=== PATIENT | female | born 1970 | race African-American/Black ===

== ENCOUNTER 2017-05-04 22:29 | Inpatient (IN) | payer OTHER ==
[~2017-05-04] VITALS: Ht 170.2 cm; Wt 61.7 kg
[2017-05-04 22:56] LABS: BASO % 1 % (0-3); EOS % 2 % (0-3); HEMATOCRIT 39.3 % (36.0-47.0); HEMOGLOBIN 13.5 g/dL (12.0-15.5); LYMPH # 1.9 x10^3/uL (1.0-4.8); LYMPH % 46 % (24-48); MEAN CORPUSCULAR HEMOGLOBIN 31 pg (25-35); MEAN CORPUSCULAR HGB CONC 34 g/dL (31-37); MEAN CORPUSCULAR VOLUME 90 fL (79-100); MONO % 6 % (0-9); NEUT % 45 % (31-73); PLATELET COUNT 195 x10^3/uL (140-400); RED BLOOD COUNT 4.38 x10^6/uL (3.50-5.40); RED CELL DISTRIBUTION WIDTH 12.9 % (11.5-14.5)
[2017-05-04] MEDS: MORPHINE SULFATE 4 MG/ML DISP.SYRIN. IV/SQ PRN (23:04)
[2017-05-04 23:05] LABS: INR 1.1 (0.8-1.1); PROTHROMBIN TIME PATIENT 13.7 SEC (11.7-14.0)
[2017-05-04 23:09] LABS: CALCIUM 9.4 mg/dL (8.5-10.1); CREATININE 0.9 mg/dL (0.6-1.0); GFR 67.1; POTASSIUM 3.4 mmol/L (3.5-5.1)
--- NOTE | 2017-05-04 23:14 | PHYS DOC ---
Past Medical History Past Medical History: CAD, High Cholesterol, Hypertension, Other Additional Past Medical Histor: Depression, anxiety Past Surgical History: Tubal ligation Alcohol Use: None Drug Use: Other Social History Narrative: former weed smoker Adult General Chief Complaint Chief Complaint: RIB PAIN HPI HPI Patient is a 47 year old female who presents with chest pain. The patient reports onset of pain 2 hours ago while at rest. She states pain is sharp/ throbbing, substernal, with radiation under her right breast & to her right shoulder/arm, associated with shortness of breath. Denies nausea or diaphoresis. Denies fevers/chills, cough, lower extremity pain/swelling. Denies previous history of similar pain. She has history of CAD s/p CABG, HTN, DM, past history tobacco abuse. 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 Review of Systems Review of Systems Constitutional: Denies fever or chills Eyes: Denies change in visual acuity HENT: Denies nasal congestion or sore throat Respiratory: Denies cough, reports shortness of breath Cardiovascular: Reports chest pain, denies edema GI: Denies abdominal pain, nausea, vomiting, bloody stools or diarrhea : Denies dysuria or hematuria Musculoskeletal: Denies back pain or joint pain Integument: Denies rash or skin lesions Neurologic: Denies headache, focal weakness or sensory changes Current Medications Current Medications Current Medications Medications (Trade) Dose Ordered Sig/Margaret Start Time Stop Time Status Last Admin Dose Admin Aspirin (Avis Aspirin) 325 mg 1X ONCE 05/04/17 23:30 05/04/17 23:31 DC 05/04/17 23:03 325 MG Morphine Sulfate 4 mg PRN Q15MIN PRN 05/04/17 23:00 05/05/17 22:59 05/04/17 23:04 4 MG Allergies Allergies Allergies Coded Allergies Type Severity Reaction Last Updated Verified naproxen Allergy Intermediate 05/04/17 Yes Physical Exam Physical Exam Constitutional: Well developed, well nourished, no acute distress, non-toxic appearance. HENT: Normocephalic, atraumatic, bilateral external ears normal, oropharynx moist, nose normal. Eyes: PERRLA, EOMI, conjunctiva normal, no discharge. Neck: supple, no stridor. Cardiovascular: RRR, no murmurs, no edema. Lungs & Thorax: LCTAB, no wheezing, no respiratory distress. Reproducible tenderness with palpation over the sternum and beneath the right breast Abdomen: soft, nontender, nondistended. Skin: Warm, dry, no erythema, no rash. Back: No tenderness. Extremities: No tenderness, no edema. No calf tenderness or swelling, lower extremity pulses palpable bilaterally Neurologic: Alert and oriented X 3, symmetric strength and sensation to upper or lower extremities, no focal deficits noted. Psychologic: Affect normal, judgement normal, mood normal. Current Patient Data Vital Signs Vital Signs Date Time Temp Pulse Resp B/P (MAP) Pulse Ox O2 Delivery O2 Flow Rate FiO2 05/04/17 23:04 16 100 Room Air 05/04/17 22:53 98.2 67 153/95 (114) 98.2 Lab Values Laboratory Tests Test 05/04/17 22:45 05/04/17 23:11 White Blood Count 4.0 x10^3/uL (4.0-11.0) Red Blood Count 4.38 x10^6/uL (3.50-5.40) Hemoglobin 13.5 g/dL (12.0-15.5) Hematocrit 39.3 % (36.0-47.0) Mean Corpuscular Volume 90 fL (79-100) Mean Corpuscular Hemoglobin 31 pg (25-35) Mean Corpuscular Hemoglobin Concent 34 g/dL (31-37) Red Cell Distribution Width 12.9 % (11.5-14.5) Platelet Count 195 x10^3/uL (140-400) Neutrophils (%) (Auto) 45 % (31-73) Lymphocytes (%) (Auto) 46 % (24-48) Monocytes (%) (Auto) 6 % (0-9) Eosinophils (%) (Auto) 2 % (0-3) Basophils (%) (Auto) 1 % (0-3) Neutrophils # (Auto) 1.8 x10^3uL (1.8-7.7) Lymphocytes # (Auto) 1.9 x10^3/uL (1.0-4.8) Monocytes # (Auto) 0.3 x10^3/uL (0.0-1.1) Eosinophils # (Auto) 0.1 x10^3/uL (0.0-0.7) Basophils # (Auto) 0.0 x10^3/uL (0.0-0.2) Prothrombin Time 13.7 SEC (11.7-14.0) Prothrombin Time INR 1.1 (0.8-1.1) PTT 24 SEC (24-38) Sodium Level 142 mmol/L (136-145) Potassium Level 3.4 mmol/L (3.5-5.1) L Chloride Level 105 mmol/L (98-107) Carbon Dioxide Level 26 mmol/L (21-32) Anion Gap 11 (6-14) Blood Urea Nitrogen 12 mg/dL (7-20) Creatinine 0.9 mg/dL (0.6-1.0) Estimated GFR (Cockcroft-Gault) 67.1 BUN/Creatinine Ratio 13 (6-20) Glucose Level 100 mg/dL (70-99) H Calcium Level 9.4 mg/dL (8.5-10.1) Magnesium Level 1.8 mg/dL (1.8-2.4) Total Bilirubin 0.6 mg/dL (0.2-1.0) Aspartate Amino Transferase (AST) 24 U/L (15-37) Alanine Aminotransferase (ALT) 22 U/L (14-59) Alkaline Phosphatase 44 U/L (46-116) L Troponin I Quantitative < 0.017 ng/mL (0.000-0.055) QE-Dzj-Z-Type Natriuretic Peptide 120 pg/mL (0-124) Total Protein 7.7 g/dL (6.4-8.2) Albumin 4.3 g/dL (3.4-5.0) Albumin/Globulin Ratio 1.3 (1.0-1.7) POC Urine HCG, Qualitative Hcg negative (Negative) Laboratory Tests 05/04/17 22:45 Laboratory Tests 05/04/17 22:45 EKG EKG interpreted by me: NSR rate 74, no STEMI, T waves inverted without ST depression in V1-V3, normal intervals, no ectopy.[] Radiology/Procedures Radiology/Procedures CXR: interpreted by me: no cardiomegaly, no infiltrate, no pneumothorax, lung hyperinflation & diaphragmatic flattening present.[] Course & Med Decision Making Course & Med Decision Making Pertinent Labs and Imaging studies reviewed. (See chart for details) The patient presents with chest pain. Symptoms somewhat atypical with reproducible pain to right chest wall, but she has substernal pain, right arm pain, & risk factors including previous CABG. Gave aspirin & pain medication. Obtained labs, EKG, CXR. She has abnormal EKG, no previous on record so unknown whether these are acute changes or chronic. I did recommend admission to the hospital for further evaluation & treatment. The patient agreed with plan of care. RICK score is 3. Discussed with Dr. Brandon who agrees to admit to inpatient status, cardiology consult to Dr. Ray. The patient is admitted in stable condition. [] Dragon Disclaimer Dragon Disclaimer This electronic medical record was generated, in whole or in part, using a voice recognition dictation system. Departure Departure Impression: Primary Impression: Chest pain Disposition: ADMITTED INPATIENT Condition: STABLE RAS NEWMAN MD May 04, 2017 23:14
[2017-05-04 23:17] LABS: ALBUMIN 4.3 g/dL (3.4-5.0); ALBUMIN/GLOBULIN RATIO 1.3 (1.0-1.7); MAGNESIUM 1.8 mg/dL (1.8-2.4); TOTAL BILIRUBIN 0.6 mg/dL (0.2-1.0); TOTAL PROTEIN 7.7 g/dL (6.4-8.2)
[2017-05-04] MEDS ORDERED: ASPIRIN 325 MG TABLET PO ONE (23:30)
[2017-05-04] MEDS ORDERED: POTASSIUM CHLORIDE 20 MEQ TABLET.ER. PO ONE (23:45)
[2017-05-05] MEDS ORDERED: NITROGLYCERIN SUBLINGUAL 0.4 MG BOTTLE OF 25. SL PRN
[2017-05-05] MEDS ORDERED: ACETAMINOPHEN 325 MG TABLET. PO PRN
[2017-05-05 00:50] VITALS: BP 150/98
[2017-05-05] MEDS ORDERED: SERT50TA PO (01:52)
[2017-05-05] MEDS ORDERED: AMLO5TAB2 PO (01:52)
[2017-05-05] MEDS ORDERED: ASPI-482 PO (01:52)
[2017-05-05] MEDS ORDERED: ATORVASTATIN CA80 MG PO (01:52)
[2017-05-05] MEDS ORDERED: CHOL100013 PO (01:52)
[2017-05-05] MEDS ORDERED: LISI-334 PO (01:52)
[2017-05-05] MEDS: MORPHINE SULFATE 4 MG/ML DISP.SYRIN. IV/SQ PRN (02:54)
[2017-05-05 03:34] VITALS: BP 159/104
[2017-05-05 07:00] VITALS: BP 119/88
[2017-05-05 07:06] LABS: CALCIUM 8.9 mg/dL (8.5-10.1); CREATININE 0.8 mg/dL (0.6-1.0); POTASSIUM 4.1 mmol/L (3.5-5.1)
--- NOTE | 2017-05-05 07:18 | EKG ---
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
--- NOTE | 2017-05-05 07:24 | RAD ---
EXAM: Chest one view. HISTORY: Chest pain. COMPARISON: None. FINDINGS: A frontal view of the chest is obtained. There are changes of coronary artery bypass grafting. There are no confluent infiltrates. The lungs are expanded to the 12th posterior ribs. There is no pneumothorax or pleural effusion. The heart is not enlarged. IMPRESSION: 1. Hyperinflation. Correlate for chronic obstructive pulmonary disease. No confluent infiltrates.
[2017-05-05] MEDS ORDERED: LISINOPRIL 20 MG TABLET PO SCH (09:00)
[2017-05-05] MEDS ORDERED: ONDANSETRON PF 4 MG/2 ML VIAL. IV PRN ×2 (09:00)
[2017-05-05] MEDS ORDERED: CHOLECALCIFEROL (VITAMIN D3) 1,000 UNIT TABLET PO SCH (09:00)
[2017-05-05] MEDS ORDERED: SERTRALINE 50 MG TABLET. PO SCH (09:00)
[2017-05-05] MEDS ORDERED: MORPHINE SULFATE 4 MG/ML DISP.SYRIN. IV/SQ PRN (09:00)
[2017-05-05] MEDS ORDERED: amLODIPine BESYLATE 5 MG TABLET PO SCH (09:00)
[2017-05-05] MEDS ORDERED: ASPIRIN ENTERIC COATED 81 MG TABLET.DR. PO SCH (09:00)
--- NOTE | 2017-05-05 09:36 | PDOC2 ---
CARDIAC CONSULT DATE OF CONSULT Date of Consult DATE: 05/05/17 TIME: 09:35 REASON FOR CONSULT Reason for Consult: Chest pain REFERRING PHYSICIAN Referring Physician: Kim SOURCE Source: Chart review, Patient HISTORY OF PRESENT ILLNESS HISTORY OF PRESENT ILLNESS This is a pleasant 47 yo female admitted for complains of chest pain. [facility] She has had follow up with her critical power technician 2 months ago and was told that she was doing well. Reports that 2 days ago she was cleaning her house and was moving furniture. Yesterday morning she was watching TV when she felt this sharp right lower sternal pain that radiated to her right back. Denies any nausea, vomiting, heartburn, palpitations, SOA, dizziness. Reports no diaphoresis and no TELLO. She also has lumbar and cervical stenosis with extra vertebrae. She was suppose to be referred to pain management but has not materialized. In addition her discomfort to her chest is reproducible with palpation. Denies any falls, recent injury or hx of clotting disorders. PAST MEDICAL HISTORY Cardiovascular: CAD, HTN, Hyperlipidemia Pulmonary: No pertinent hx CENTRAL NERVOUS SYSTEM: Seizure (likely peti mal from her description last occurred when she was a lot younger, unmedicated) GI: GERD Heme/Onc: No pertinent hx Hepatobiliary: No pertinent hx Psych: Anxiety Musculoskeletal: low back pain, Osteoarthritis Rheumatologic: No pertinent hx Infectious disease: No pertinent hx ENT: No pertinent hx Renal/: No pertinent hx Endocrine: No pertinent hx Dermatology: No pertinent hx PAST SURGICAL HISTORY Past Surgical History: CABG (x4), Tubal Ligation FAMILY HISTORY Family History: Coronary Artery Disease (father and mother) SOCIAL HISTORY Smoke: Quit (>20 pk yr quit in 2015) ALCOHOL: none Drugs: Marijuana Lives: with Family CURRENT MEDICATIONS CURRENT MEDICATIONS Current Medications Medications (Trade) Dose Ordered Sig/Margaret Route PRN Reason Start Time Stop Time Status Last Admin Dose Admin Aspirin (Avis Aspirin) 325 mg 1X ONCE PO 05/04/17 23:30 05/04/17 23:31 DC 05/04/17 23:03 Morphine Sulfate 4 mg PRN Q15MIN PRN IV/SQ PAIN GREATER THAN 3/10 05/04/17 23:00 05/05/17 08:57 DC 05/05/17 02:54 Potassium Chloride (Klor-Con) 40 meq 1X ONCE PO 05/04/17 23:45 05/04/17 23:46 DC 05/04/17 23:34 ALLERGIES ALLERGIES: Coded Allergies: naproxen (Verified Allergy, Intermediate, 05/04/17) ROS Review of System 14 point ROS evaluated with peritinent positives noted per HPI PHYSICAL EXAM General: Alert, Oriented X3, Cooperative, No acute distress HEENT: Atraumatic, Mucous membr. moist/pink Lungs: Clear to auscultation, Normal air movement Heart: Regular rate (SR), Normal S1, Normal S2 Abdomen: Soft, No tenderness Extremities: No cyanosis, No edema Skin: No breakdown, No significant lesion Neuro: Normal speech, Sensation intact Psych/Mental Status: Mental status NL, Mood NL MUSCULOSKELETAL: Osteoarthritic changes both hands VITALS VITALS Vital Signs Date Time Temp Pulse Resp B/P (MAP) Pulse Ox O2 Delivery O2 Flow Rate FiO2 05/05/17 07:00 97.4 74 20 119/88 (98) 100 Room Air 97.4 05/05/17 03:34 2.0 LABS Lab: Laboratory Tests Test 05/04/17 22:45 05/04/17 23:11 05/05/17 03:00 05/05/17 05:30 White Blood Count 4.0 x10^3/uL (4.0-11.0) Red Blood Count 4.38 x10^6/uL (3.50-5.40) Hemoglobin 13.5 g/dL (12.0-15.5) Hematocrit 39.3 % (36.0-47.0) Mean Corpuscular Volume 90 fL (79-100) Mean Corpuscular Hemoglobin 31 pg (25-35) Mean Corpuscular Hemoglobin Concent 34 g/dL (31-37) Red Cell Distribution Width 12.9 % (11.5-14.5) Platelet Count 195 x10^3/uL (140-400) Neutrophils (%) (Auto) 45 % (31-73) Lymphocytes (%) (Auto) 46 % (24-48) Monocytes (%) (Auto) 6 % (0-9) Eosinophils (%) (Auto) 2 % (0-3) Basophils (%) (Auto) 1 % (0-3) Neutrophils # (Auto) 1.8 x10^3uL (1.8-7.7) Lymphocytes # (Auto) 1.9 x10^3/uL (1.0-4.8) Monocytes # (Auto) 0.3 x10^3/uL (0.0-1.1) Eosinophils # (Auto) 0.1 x10^3/uL (0.0-0.7) Basophils # (Auto) 0.0 x10^3/uL (0.0-0.2) Prothrombin Time 13.7 SEC (11.7-14.0) Prothromb Time International Ratio 1.1 (0.8-1.1) Activated Partial Thromboplast Time 24 SEC (24-38) Sodium Level 142 mmol/L (136-145) 144 mmol/L (136-145) Potassium Level 3.4 mmol/L (3.5-5.1) 4.1 mmol/L (3.5-5.1) Chloride Level 105 mmol/L (98-107) 107 mmol/L (98-107) Carbon Dioxide Level 26 mmol/L (21-32) 31 mmol/L (21-32) Anion Gap 11 (6-14) 6 (6-14) Blood Urea Nitrogen 12 mg/dL (7-20) 10 mg/dL (7-20) Creatinine 0.9 mg/dL (0.6-1.0) 0.8 mg/dL (0.6-1.0) Estimated GFR (Cockcroft-Gault) 67.1 93.0 BUN/Creatinine Ratio 13 (6-20) Glucose Level 100 mg/dL (70-99) 102 mg/dL (70-99) Calcium Level 9.4 mg/dL (8.5-10.1) 8.9 mg/dL (8.5-10.1) Magnesium Level 1.8 mg/dL (1.8-2.4) Total Bilirubin 0.6 mg/dL (0.2-1.0) Aspartate Amino Transf (AST/SGOT) 24 U/L (15-37) Alanine Aminotransferase (ALT/SGPT) 22 U/L (14-59) Alkaline Phosphatase 44 U/L (46-116) Troponin I Quantitative < 0.017 ng/mL (0.000-0.055) < 0.017 ng/mL (0.000-0.055) < 0.017 ng/mL (0.000-0.055) EJ-Bsr-P-Type Natriuretic Peptide 120 pg/mL (0-124) Total Protein 7.7 g/dL (6.4-8.2) Albumin 4.3 g/dL (3.4-5.0) Albumin/Globulin Ratio 1.3 (1.0-1.7) Bedside Urine HCG, Qualitative Hcg negative (Negative) ASSESSMENT/PLAN ASSESSMENT/PLAN 1. Atypical chest pain: MSK. Reproducible. Noncardiac 2. Hx of of cervical/lumbar stenosis with possible TOS 3. CAD: past CABG 06/2016. stable 4. Possible COPD: Hyperinflation per CXR with past hx of tobaccoims. Will need outpt PFTs to confirm 5. HTN: labile 6. HLP 7. Marijuana use: discussed not to use. Using it primarily for her grief ( Brother just recently ) Recommendations 1. Continue home meds with secondary prevention 2. Will need referral for pain management per outpt PCP and will need outpt PFTs as well 3. No further cardiac testing, follow up with her critical power technician as an outpt. 4. Discussed treatment compliance. Problems: KORI RAZA PASTE UP ARTIST APPRENTICE May 05, 2017 09:36
[2017-05-05 11:00] VITALS: BP 152/91
--- NOTE | 2017-05-05 12:07 | PDOC1 ---
History and Physical Date of Admission Date of Admission DATE: 05/05/17 TIME: 12:03 Identification/Chief Complaint Chief Complaint CP Problems: Source Source: Caregiver, Chart review, Patient History of Present Illness History of Present Illness 47 y.o AA female, DM, HTN and dyslipidemia on records but sounds like not taking any meds, no PCP admitted for CP happened at rest, atypical,left and rt chest, middle, no radiation no known alleviating and precipitating factors, no diaphoresis,. CArds seen, MSK, no further cardiac work up, EKG and trops ok, Mentions to me back pain, side, tramadol and hydrocodones no help,. Also smoker , CXR shows hyperinflation, No O2, Cards advise OP PFts. PT seen and examined Agree to dc - ALL requested rx for pain given, trial of lidoderm patch and oxy. COunselled heavy, Time 32 mins cumulative Past Medical History Cardiovascular: CAD, HTN, Hyperlipidemia Pulmonary: No pertinent hx CENTRAL NERVOUS SYSTEM: Seizure (likely peti mal from her description last occurred when she was a lot younger, unmedicated) GI: GERD Heme/Onc: No pertinent hx Hepatobiliary: No pertinent hx Psych: Anxiety Musculoskeletal: low back pain, Osteoarthritis Rheumatologic: No pertinent hx Infectious disease: No pertinent hx ENT: No pertinent hx Renal/: No pertinent hx Endocrine: No pertinent hx Dermatology: No pertinent hx Past Surgical History Past Surgical History: CABG (x4), Tubal Ligation Family History Family History: Coronary Artery Disease (father and mother) Social History Smoke: <1 pack per day ALCOHOL: none Drugs: Marijuana Current Problem List Problem List Problems Medical Problems: (1) Chest pain Status: Acute Problems: Current Medications Current Medications Current Medications Aspirin (Avis Aspirin) 325 mg 1X ONCE PO Last administered on 05/04/17 23:03 ; Start 05/04/17 at 23:30; Stop 05/04/17 at 23:31; Status DC Morphine Sulfate 4 mg PRN Q15MIN PRN IV/SQ PAIN GREATER THAN 3/10 Last administered on 05/05/17 02:54; Start 05/04/17 at 23:00; Stop 05/05/17 at 08:57 ; Status DC Potassium Chloride (Klor-Con) 40 meq 1X ONCE PO Last administered on 23:34; Start 05/04/17 at 23:45; Stop 05/04/17 at 23:46; Status DC Ondansetron HCl (Zofran) 4 mg PRN Q8HRS PRN IV NAUSEA/VOMITING; Start 05/05/17 at 00:00; Stop 05/05/17 at 08:57; Status DC Acetaminophen (Tylenol) 650 mg PRN Q4HRS PRN PO FEVER; Start 05/05/17 at 00:00 ; Stop 05/05/17 at 23:59 Nitroglycerin (Nitrostat) 0.4 mg PRN Q5MIN PRN SL CHEST PAIN; Start 05/05/17 at 00:00; Stop 05/05/17 at 23:59 Morphine Sulfate 4 mg PRN Q2HR PRN IV/SQ PAIN GREATER THAN 3/10; Start at 09:00; Stop 05/06/17 at 08:59 Ondansetron HCl (Zofran) 4 mg PRN Q6HRS PRN IV NAUSEA/VOMITING Last administered on 05/05/17 11:45; Start 05/05/17 at 09:00; Stop 05/06/17 at 08:59 Amlodipine Besylate (Norvasc) 5 mg DAILY PO Last administered on 05/05/17 10: 23; Start 05/05/17 at 09:00 Aspirin (Ecotrin) 81 mg DAILY PO Last administered on 05/05/17 10:23; Start at 09:00 Lisinopril (Prinivil) 20 mg DAILY PO Last administered on 05/05/17 10:24; Start 05/05/17 at 09:00 Sertraline HCl (Zoloft) 150 mg DAILY PO Last administered on 05/05/17 10:22; Start 05/05/17 at 09:00 Atorvastatin Calcium (Lipitor) 80 mg QHS PO ; Start 05/05/17 at 21:00 Vitamin D (Vitamin D3) 1,000 unit DAILY PO Last administered on 05/05/17 10:23 ; Start 05/05/17 at 09:00 Active Scripts Active Reported Vitamin D (Cholecalciferol (Vitamin D3)) 1,000 Unit Capsule 1 Cap PO DAILY Amlodipine Besylate 5 Mg Tablet 5 Mg PO DAILY Zoloft (Sertraline Hcl) 50 Mg Tablet 3 Tab PO DAILY Atorvastatin Calcium 80 Mg Tablet 1 Tab PO DAILY Lisinopril 20 Mg Tablet 1 Tab PO DAILY Aspir 81 (Aspirin) 81 Mg Tablet. 1 Tab PO DAILY Allergies Allergies: Coded Allergies: naproxen (Verified Allergy, Intermediate, 05/04/17) ROS Review of System as per HPI, all else is neg Physical Exam General: Alert, Oriented X3, Cooperative, No acute distress HEENT: Atraumatic, PERRLA Lungs: Clear to auscultation, Normal air movement Heart: S1S2, RRR, no thrills, no rubs, no gallops, no murmurs Cardiovascular: S1, S2 Breasts: Normal, Rt breast nml w/o mass, Lt breast nml w/o mass, Nipples normal Abdomen: Normal bowel sounds, Soft, No tenderness, No hepatosplenomegaly, No masses Rectal Exam: not examined PELVIC: Nml ext genitalia Extremities: No clubbing, No cyanosis, No edema, Normal pulses, No tenderness/ swelling Skin: No rashes, No breakdown, No significant lesion Neuro: Normal gait, Normal speech, Strength at 5/5 X4 ext, Normal tone, Sensation intact, Cranial nerves 3-12 NL, Reflexes 2+ Psych/Mental Status: Mental status NL, Mood NL Vitals Vitals Vital Signs Date Time Temp Pulse Resp B/P (MAP) Pulse Ox O2 Delivery O2 Flow Rate FiO2 05/05/17 10:24 74 119/88 05/05/17 08:05 Nasal Cannula 2.0 05/05/17 07:00 97.4 20 100 97.4 Labs Labs Laboratory Tests Test 05/04/17 22:45 05/04/17 23:11 05/05/17 03:00 05/05/17 05:30 White Blood Count 4.0 x10^3/uL (4.0-11.0) Red Blood Count 4.38 x10^6/uL (3.50-5.40) Hemoglobin 13.5 g/dL (12.0-15.5) Hematocrit 39.3 % (36.0-47.0) Mean Corpuscular Volume 90 fL (79-100) Mean Corpuscular Hemoglobin 31 pg (25-35) Mean Corpuscular Hemoglobin Concent 34 g/dL (31-37) Red Cell Distribution Width 12.9 % (11.5-14.5) Platelet Count 195 x10^3/uL (140-400) Neutrophils (%) (Auto) 45 % (31-73) Lymphocytes (%) (Auto) 46 % (24-48) Monocytes (%) (Auto) 6 % (0-9) Eosinophils (%) (Auto) 2 % (0-3) Basophils (%) (Auto) 1 % (0-3) Neutrophils # (Auto) 1.8 x10^3uL (1.8-7.7) Lymphocytes # (Auto) 1.9 x10^3/uL (1.0-4.8) Monocytes # (Auto) 0.3 x10^3/uL (0.0-1.1) Eosinophils # (Auto) 0.1 x10^3/uL (0.0-0.7) Basophils # (Auto) 0.0 x10^3/uL (0.0-0.2) Prothrombin Time 13.7 SEC (11.7-14.0) Prothromb Time International Ratio 1.1 (0.8-1.1) Activated Partial Thromboplast Time 24 SEC (24-38) Sodium Level 142 mmol/L (136-145) 144 mmol/L (136-145) Potassium Level 3.4 mmol/L (3.5-5.1) 4.1 mmol/L (3.5-5.1) Chloride Level 105 mmol/L (98-107) 107 mmol/L (98-107) Carbon Dioxide Level 26 mmol/L (21-32) 31 mmol/L (21-32) Anion Gap 11 (6-14) 6 (6-14) Blood Urea Nitrogen 12 mg/dL (7-20) 10 mg/dL (7-20) Creatinine 0.9 mg/dL (0.6-1.0) 0.8 mg/dL (0.6-1.0) Estimated GFR (Cockcroft-Gault) 67.1 93.0 BUN/Creatinine Ratio 13 (6-20) Glucose Level 100 mg/dL (70-99) 102 mg/dL (70-99) Calcium Level 9.4 mg/dL (8.5-10.1) 8.9 mg/dL (8.5-10.1) Magnesium Level 1.8 mg/dL (1.8-2.4) Total Bilirubin 0.6 mg/dL (0.2-1.0) Aspartate Amino Transf (AST/SGOT) 24 U/L (15-37) Alanine Aminotransferase (ALT/SGPT) 22 U/L (14-59) Alkaline Phosphatase 44 U/L (46-116) Troponin I Quantitative < 0.017 ng/mL (0.000-0.055) < 0.017 ng/mL (0.000-0.055) < 0.017 ng/mL (0.000-0.055) RA-Bnx-T-Type Natriuretic Peptide 120 pg/mL (0-124) Total Protein 7.7 g/dL (6.4-8.2) Albumin 4.3 g/dL (3.4-5.0) Albumin/Globulin Ratio 1.3 (1.0-1.7) Bedside Urine HCG, Qualitative Hcg negative (Negative) Laboratory Tests Test 05/04/17 22:45 05/04/17 23:11 05/05/17 03:00 05/05/17 05:30 White Blood Count 4.0 x10^3/uL (4.0-11.0) Red Blood Count 4.38 x10^6/uL (3.50-5.40) Hemoglobin 13.5 g/dL (12.0-15.5) Hematocrit 39.3 % (36.0-47.0) Mean Corpuscular Volume 90 fL (79-100) Mean Corpuscular Hemoglobin 31 pg (25-35) Mean Corpuscular Hemoglobin Concent 34 g/dL (31-37) Red Cell Distribution Width 12.9 % (11.5-14.5) Platelet Count 195 x10^3/uL (140-400) Neutrophils (%) (Auto) 45 % (31-73) Lymphocytes (%) (Auto) 46 % (24-48) Monocytes (%) (Auto) 6 % (0-9) Eosinophils (%) (Auto) 2 % (0-3) Basophils (%) (Auto) 1 % (0-3) Neutrophils # (Auto) 1.8 x10^3uL (1.8-7.7) Lymphocytes # (Auto) 1.9 x10^3/uL (1.0-4.8) Monocytes # (Auto) 0.3 x10^3/uL (0.0-1.1) Eosinophils # (Auto) 0.1 x10^3/uL (0.0-0.7) Basophils # (Auto) 0.0 x10^3/uL (0.0-0.2) Prothrombin Time 13.7 SEC (11.7-14.0) Prothromb Time International Ratio 1.1 (0.8-1.1) Activated Partial Thromboplast Time 24 SEC (24-38) Sodium Level 142 mmol/L (136-145) 144 mmol/L (136-145) Potassium Level 3.4 mmol/L (3.5-5.1) 4.1 mmol/L (3.5-5.1) Chloride Level 105 mmol/L (98-107) 107 mmol/L (98-107) Carbon Dioxide Level 26 mmol/L (21-32) 31 mmol/L (21-32) Anion Gap 11 (6-14) 6 (6-14) Blood Urea Nitrogen 12 mg/dL (7-20) 10 mg/dL (7-20) Creatinine 0.9 mg/dL (0.6-1.0) 0.8 mg/dL (0.6-1.0) Estimated GFR (Cockcroft-Gault) 67.1 93.0 BUN/Creatinine Ratio 13 (6-20) Glucose Level 100 mg/dL (70-99) 102 mg/dL (70-99) Calcium Level 9.4 mg/dL (8.5-10.1) 8.9 mg/dL (8.5-10.1) Magnesium Level 1.8 mg/dL (1.8-2.4) Total Bilirubin 0.6 mg/dL (0.2-1.0) Aspartate Amino Transf (AST/SGOT) 24 U/L (15-37) Alanine Aminotransferase (ALT/SGPT) 22 U/L (14-59) Alkaline Phosphatase 44 U/L (46-116) Troponin I Quantitative < 0.017 ng/mL (0.000-0.055) < 0.017 ng/mL (0.000-0.055) < 0.017 ng/mL (0.000-0.055) HX-Nzc-E-Type Natriuretic Peptide 120 pg/mL (0-124) Total Protein 7.7 g/dL (6.4-8.2) Albumin 4.3 g/dL (3.4-5.0) Albumin/Globulin Ratio 1.3 (1.0-1.7) Bedside Urine HCG, Qualitative Hcg negative (Negative) VTE Prophylaxis Ordered VTE Prophylaxis Devices: Yes VTE Pharmacological Prophylaxi: Yes Assessment/Plan Assessment/Plan 1. NOn cardiac CP at rest 2. HTN, DM2 Dyslidoemia, CABG hx - mid sternal scar seen - non com plaint- stable PLAn: Cleared by cards to go home ALl rx written for, ENcouraged compliance KESHA MULLER MD May 05, 2017 12:07
--- NOTE | 2017-05-05 12:08 | PDOC3 ---
Discharge Summary Visit Information Date of Admission: May 04, 2017 Date of Discharge: May 05, 2017 Admitting Diagnosis Comment: 1. NOn cardiac CP at rest 2. HTN, DM2 Dyslidoemia, CABG hx - mid sternal scar seen - non com plaint- stable Final Diagnosis Problems Medical Problems: (1) Chest pain Status: Acute Brief Hospital Course Allergies Allergies Coded Allergies Type Severity Reaction Last Updated Verified naproxen Allergy Intermediate 05/04/17 Yes Vital Signs Vital Signs Date Time Temp Pulse Resp B/P (MAP) Pulse Ox O2 Delivery O2 Flow Rate FiO2 05/05/17 10:24 74 119/88 05/05/17 08:05 Nasal Cannula 2.0 05/05/17 07:00 97.4 20 100 97.4 Lab Results Laboratory Tests Test 05/04/17 22:45 05/04/17 23:11 05/05/17 03:00 05/05/17 05:30 White Blood Count 4.0 x10^3/uL (4.0-11.0) Red Blood Count 4.38 x10^6/uL (3.50-5.40) Hemoglobin 13.5 g/dL (12.0-15.5) Hematocrit 39.3 % (36.0-47.0) Mean Corpuscular Volume 90 fL (79-100) Mean Corpuscular Hemoglobin 31 pg (25-35) Mean Corpuscular Hemoglobin Concent 34 g/dL (31-37) Red Cell Distribution Width 12.9 % (11.5-14.5) Platelet Count 195 x10^3/uL (140-400) Neutrophils (%) (Auto) 45 % (31-73) Lymphocytes (%) (Auto) 46 % (24-48) Monocytes (%) (Auto) 6 % (0-9) Eosinophils (%) (Auto) 2 % (0-3) Basophils (%) (Auto) 1 % (0-3) Neutrophils # (Auto) 1.8 x10^3uL (1.8-7.7) Lymphocytes # (Auto) 1.9 x10^3/uL (1.0-4.8) Monocytes # (Auto) 0.3 x10^3/uL (0.0-1.1) Eosinophils # (Auto) 0.1 x10^3/uL (0.0-0.7) Basophils # (Auto) 0.0 x10^3/uL (0.0-0.2) Prothrombin Time 13.7 SEC (11.7-14.0) Prothromb Time International Ratio 1.1 (0.8-1.1) Activated Partial Thromboplast Time 24 SEC (24-38) Sodium Level 142 mmol/L (136-145) 144 mmol/L (136-145) Potassium Level 3.4 mmol/L (3.5-5.1) 4.1 mmol/L (3.5-5.1) Chloride Level 105 mmol/L (98-107) 107 mmol/L (98-107) Carbon Dioxide Level 26 mmol/L (21-32) 31 mmol/L (21-32) Anion Gap 11 (6-14) 6 (6-14) Blood Urea Nitrogen 12 mg/dL (7-20) 10 mg/dL (7-20) Creatinine 0.9 mg/dL (0.6-1.0) 0.8 mg/dL (0.6-1.0) Estimated GFR (Cockcroft-Gault) 67.1 93.0 BUN/Creatinine Ratio 13 (6-20) Glucose Level 100 mg/dL (70-99) 102 mg/dL (70-99) Calcium Level 9.4 mg/dL (8.5-10.1) 8.9 mg/dL (8.5-10.1) Magnesium Level 1.8 mg/dL (1.8-2.4) Total Bilirubin 0.6 mg/dL (0.2-1.0) Aspartate Amino Transf (AST/SGOT) 24 U/L (15-37) Alanine Aminotransferase (ALT/SGPT) 22 U/L (14-59) Alkaline Phosphatase 44 U/L (46-116) Troponin I Quantitative < 0.017 ng/mL (0.000-0.055) < 0.017 ng/mL (0.000-0.055) < 0.017 ng/mL (0.000-0.055) XP-Gfl-S-Type Natriuretic Peptide 120 pg/mL (0-124) Total Protein 7.7 g/dL (6.4-8.2) Albumin 4.3 g/dL (3.4-5.0) Albumin/Globulin Ratio 1.3 (1.0-1.7) Bedside Urine HCG, Qualitative Hcg negative (Negative) Laboratory Tests Test 05/04/17 22:45 05/04/17 23:11 05/05/17 03:00 05/05/17 05:30 White Blood Count 4.0 x10^3/uL (4.0-11.0) Red Blood Count 4.38 x10^6/uL (3.50-5.40) Hemoglobin 13.5 g/dL (12.0-15.5) Hematocrit 39.3 % (36.0-47.0) Mean Corpuscular Volume 90 fL (79-100) Mean Corpuscular Hemoglobin 31 pg (25-35) Mean Corpuscular Hemoglobin Concent 34 g/dL (31-37) Red Cell Distribution Width 12.9 % (11.5-14.5) Platelet Count 195 x10^3/uL (140-400) Neutrophils (%) (Auto) 45 % (31-73) Lymphocytes (%) (Auto) 46 % (24-48) Monocytes (%) (Auto) 6 % (0-9) Eosinophils (%) (Auto) 2 % (0-3) Basophils (%) (Auto) 1 % (0-3) Neutrophils # (Auto) 1.8 x10^3uL (1.8-7.7) Lymphocytes # (Auto) 1.9 x10^3/uL (1.0-4.8) Monocytes # (Auto) 0.3 x10^3/uL (0.0-1.1) Eosinophils # (Auto) 0.1 x10^3/uL (0.0-0.7) Basophils # (Auto) 0.0 x10^3/uL (0.0-0.2) Prothrombin Time 13.7 SEC (11.7-14.0) Prothromb Time International Ratio 1.1 (0.8-1.1) Activated Partial Thromboplast Time 24 SEC (24-38) Sodium Level 142 mmol/L (136-145) 144 mmol/L (136-145) Potassium Level 3.4 mmol/L (3.5-5.1) 4.1 mmol/L (3.5-5.1) Chloride Level 105 mmol/L (98-107) 107 mmol/L (98-107) Carbon Dioxide Level 26 mmol/L (21-32) 31 mmol/L (21-32) Anion Gap 11 (6-14) 6 (6-14) Blood Urea Nitrogen 12 mg/dL (7-20) 10 mg/dL (7-20) Creatinine 0.9 mg/dL (0.6-1.0) 0.8 mg/dL (0.6-1.0) Estimated GFR (Cockcroft-Gault) 67.1 93.0 BUN/Creatinine Ratio 13 (6-20) Glucose Level 100 mg/dL (70-99) 102 mg/dL (70-99) Calcium Level 9.4 mg/dL (8.5-10.1) 8.9 mg/dL (8.5-10.1) Magnesium Level 1.8 mg/dL (1.8-2.4) Total Bilirubin 0.6 mg/dL (0.2-1.0) Aspartate Amino Transf (AST/SGOT) 24 U/L (15-37) Alanine Aminotransferase (ALT/SGPT) 22 U/L (14-59) Alkaline Phosphatase 44 U/L (46-116) Troponin I Quantitative < 0.017 ng/mL (0.000-0.055) < 0.017 ng/mL (0.000-0.055) < 0.017 ng/mL (0.000-0.055) LV-Xuv-E-Type Natriuretic Peptide 120 pg/mL (0-124) Total Protein 7.7 g/dL (6.4-8.2) Albumin 4.3 g/dL (3.4-5.0) Albumin/Globulin Ratio 1.3 (1.0-1.7) Bedside Urine HCG, Qualitative Hcg negative (Negative) Brief Hospital Course Ms. Griffin is a 47 old [sex] who presented with [ ] 47 y.o AA female, DM, HTN and dyslipidemia on records but sounds like not taking any meds, no PCP admitted for CP happened at rest, atypical,left and rt chest, middle, no radiation no known alleviating and precipitating factors, no diaphoresis,. CArds seen, MSK, no further cardiac work up, EKG and trops ok, Mentions to me back pain, side, tramadol and hydrocodones no help,. Also smoker , CXR shows hyperinflation, No O2, Cards advise OP PFts. PT seen and examined Agree to dc - ALL requested rx for pain given, trial of lidoderm patch and oxy. COunselled heavy, Time 32 mins cumulative Discharge Information Condition at Discharge: Improved, Stable Disposition/Orders: D/C to Home Scheduled Amlodipine Besylate (Amlodipine Besylate), 5 MG PO DAILY, (Reported) Aspirin (Aspir 81), 1 TAB PO DAILY, (Reported) Atorvastatin Calcium (Atorvastatin Calcium), 1 TAB PO DAILY, (Reported) Cholecalciferol (Vitamin D3) (Vitamin D), 1 CAP PO DAILY, (Reported) Lisinopril (Lisinopril), 1 TAB PO DAILY, (Reported) Sertraline Hcl (Zoloft), 3 TAB PO DAILY, (Reported) KESHA MULLER MD May 05, 2017 12:08
--- NOTE | 2017-05-05 14:22 | EKG ---
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 RI6.01 No previous ECG available for comparison Electronically Signed On 05-24-2017 10:33:46 CDT by Brown Ortiz
[2017-05-05] MEDS ORDERED: ATORVASTATIN CALCIUM 40 MG TABLET. PO SCH (21:00)
== END 2017-05-05 15:45 | disposition home or self-care (01) | DRG 313 ==
LOC: ER 22:29 → 2 SOUTH 23:34
PROVIDERS: ADMIT Internal Medicine Hematology & Oncology; ATTEND Internal Medicine Hematology & Oncology
DX: R07.89 Other chest pain (principal); I25.10 Atherosclerotic heart disease of native coronary artery without angina pectoris; M48.02 Spinal stenosis, cervical region; I10 Essential (primary) hypertension; E11.9 Type 2 diabetes mellitus without complications; E78.5 Hyperlipidemia, unspecified; E78.00 Pure hypercholesterolemia, unspecified; F12.90 Cannabis use, unspecified, uncomplicated; F17.210 Nicotine dependence, cigarettes, uncomplicated; J44.9 Chronic obstructive pulmonary disease, unspecified; K21.9 Gastro-esophageal reflux disease without esophagitis; M54.5 Low back pain; F32.9 Major depressive disorder, single episode, unspecified; F41.9 Anxiety disorder, unspecified; M48.06 Spinal stenosis, lumbar region; Z79.82 Long term (current) use of aspirin; Z82.49 Family history of ischemic heart disease and other diseases of the circulatory system; Z95.1 Presence of aortocoronary bypass graft; X50.0XXA Overexertion from strenuous movement or load, initial encounter; Z91.19 Patient's noncompliance with other medical treatment and regimen
CPT/HCPCS: 36415; 71010; 80048; 80053; 81025; 83735; 83880; 84484; 85025; 85610; 85730; 93005; J2270; J2405; 99285-25

== ENCOUNTER 2017-12-25 18:29 | Emergency (ER) | payer MEDICARE, OTHER ==
[2017-12-25 18:55] LABS: URINE HCG POC HCG NEGATIVE (Negative)
[2017-12-25] MEDS: diphenhydrAMINE 50 MG/ML VIAL IVP (19:22)
[2017-12-25] MEDS: METOCLOPRAMIDE HCL 10 MG/2 ML VIAL. IV (19:22)
[2017-12-25] MEDS: KETOROLAC 30 MG/ML INJ. IV (19:22)
[2017-12-25] MEDS: IV NORMAL SALINE 1000ML BAG 1,000 ML IV (19:23)
== END 2017-12-25 20:23 | disposition home or self-care (01) ==
LOC: ER 18:29
DX: G43.909 Migraine, unspecified, not intractable, without status migrainosus (principal); E78.00 Pure hypercholesterolemia, unspecified; F41.9 Anxiety disorder, unspecified; F32.9 Major depressive disorder, single episode, unspecified; I25.10 Atherosclerotic heart disease of native coronary artery without angina pectoris; F12.10 Cannabis abuse, uncomplicated; I10 Essential (primary) hypertension; Z98.51 Tubal ligation status; Z88.8 Allergy status to other drugs, medicaments and biological substances
CPT/HCPCS: 81025; 96374; 96375; 99284; J1200; J1885; J2765; J7030

== ENCOUNTER 2018-04-02 15:12 | Emergency (ER) | payer MEDICARE ==
[~2018-04-02] VITALS: Ht 170.2 cm; Wt 61.7 kg
[~2018-04-02 15:12] MED LIST: AMLO5TAB2 PO; ASPI-482 PO; ATORVASTATIN CA80 MG PO; CHOL100013 PO; LISI-334 PO; METO10TA81 PO; SERT50TA PO
--- NOTE | 2018-04-02 15:47 | EKG ---
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
[2018-04-02 16:03] LABS: BILIRUBIN,URINE NEGATIVE (NEG); CLARITY,URINE CLEAR; COLOR,URINE YELLOW; NITRITE,URINE NEGATIVE (NEG); PH,URINE 5.5; PROTEIN,URINE NEGATIVE (NEG-TRACE)
--- NOTE | 2018-04-02 16:05 | PHYS DOC ---
Past Medical History Past Medical History: CAD, COPD, High Cholesterol, Hypertension, [place] Additional Past Medical Histor: Depression, anxiety Past Surgical History: Coronary Bypass Surgery, Tubal ligation Smoking: Quit Greater Than 1 Year Alcohol Use: Occasionally Drug Use: Marijuana Adult General Chief Complaint Chief Complaint: CHEST PAIN HPI HPI Patient is a 47-year-old -Citizen Of [place] female who presents to the emergency department for evaluation. She states that just prior to arrival she had an episode of vomiting, without any nausea. She states she was driving and she just began vomiting. She states she had some chest discomfort described as a right-sided/paracentral chest pressure after she began vomiting. The chest discomfort lasted only a few minutes and has completely resolved. She has not had any recurrence of her chest discomfort. She states the symptoms, including the vomiting without nausea, and chest discomfort, felt similar to her prior acute coronary syndrome that she had about a year and a half ago. She states at that time, she was taken to [facility], where by she was found to have triple vessel disease and underwent a CABG a few days later. She states since that time she has stopped smoking. She does take aspirin daily but states she has not taken this today. She has a history of hypertension, for which she takes Norvasc and lisinopril. She states that her chest pain has since resolved , and she is not having any chest discomfort at this time. She denies having had any shortness of breath. Nothing in particular seems to help improve, or worsen, her symptoms. Review of Systems Review of Systems Constitutional: Denies fever or chills [] Eyes: Denies change in visual acuity, redness, or eye pain [] HENT: Denies nasal congestion or sore throat [] Respiratory: Denies cough or shortness of breath [] Cardiovascular: No additional information not addressed in HPI [] GI: Denies abdominal pain bloody stools or diarrhea [] : Denies dysuria or hematuria [] Musculoskeletal: Denies back pain or joint pain [] Integument: Denies rash or skin lesions [] Neurologic: Denies headache, focal weakness or sensory changes [] Endocrine: Denies polyuria or polydipsia [] All other systems were reviewed and found to be within normal limits, except as documented in this note. Current Medications Current Medications Current Medications Medications (Trade) Dose Ordered Sig/Margaret Start Time Stop Time Status Last Admin Dose Admin Aspirin (Children'S Aspirin) 324 mg 1X ONCE 04/02/18 15:45 04/02/18 15:46 DC 04/02/18 16:06 324 MG Allergies Allergies Allergies Coded Allergies Type Severity Reaction Last Updated Verified naproxen Allergy Intermediate 05/04/17 Yes Physical Exam Physical Exam PHYSICAL EXAM: CONSTITUTIONAL: Well developed, well nourished HEAD: normocephalic, atraumatic EENT: PERRL, EOMI. Conjunctivae normal color, sclerae non-icteric; moist mucous membranes. NECK: Supple, non-tender; no meningismus. LUNGS: Lungs CTA, breathing even and unlabored. Normal air movement. HEART: Regular rate and rhythm, no murmur CHEST: No deformity; non-tender ABDOMEN: The abdomen is soft, there is right upper quadrant tenderness to palpation, with some voluntary guarding, Padron sign is equivocal, there is also some mild epigastric tenderness to palpation. The remainder of the abdomen , including the right lower quadrant and lower abdomen diffusely, is soft and non-tender, no masses or bruits. EXTREM: Normal ROM; no deformity, no calf tenderness. Normal pulses palpable in all extremities. There is no pedal edema. SKIN: No rash; no diaphoresis NEURO: Alert; normal speech and cognition; CN's grossly intact; strength grossly intact without focal deficit. BACK: No CVA TTP. Current Patient Data Vital Signs Vital Signs Date Time Temp Pulse Resp B/P (MAP) Pulse Ox O2 Delivery O2 Flow Rate FiO2 04/02/18 15:47 98.6 64 21 161/97 (118) 99 Room Air 98.6 Lab Values Laboratory Tests Test 04/02/18 15:50 04/02/18 16:11 Urine Collection Type Unknown Urine Color Yellow Urine Clarity Clear Urine pH 5.5 Urine Specific [place] 1.025 Urine Protein Negative mg/dL (NEG-TRACE) Urine Glucose (UA) Negative mg/dL (NEG) Urine Ketones (Stick) Negative mg/dL (NEG) Urine Blood Negative (NEG) Urine Nitrite Negative (NEG) Urine Bilirubin Negative (NEG) Urine Urobilinogen Dipstick 1.0 mg/dL (0.2 mg/dL) Urine Leukocyte Esterase Negative (NEG) Urine RBC Occ /HPF (0-2) Urine WBC 1-4 /HPF (0-4) Urine Squamous Epithelial Cells Mod /LPF Urine Bacteria Few /HPF (0-FEW) Urine Hyaline Casts Few /HPF Urine Mucus Marked /LPF White Blood Count 3.1 x10^3/uL (4.0-11.0) L Red Blood Count 4.38 x10^6/uL (3.50-5.40) Hemoglobin 13.3 g/dL (12.0-15.5) Hematocrit 39.7 % (36.0-47.0) Mean Corpuscular Volume 91 fL (79-100) Mean Corpuscular Hemoglobin 30 pg (25-35) Mean Corpuscular Hemoglobin Concent 33 g/dL (31-37) Red Cell Distribution Width 13.2 % (11.5-14.5) Platelet Count 184 x10^3/uL (140-400) Neutrophils (%) (Auto) 54 % (31-73) Lymphocytes (%) (Auto) 38 % (24-48) Monocytes (%) (Auto) 6 % (0-9) Eosinophils (%) (Auto) 2 % (0-3) Basophils (%) (Auto) 1 % (0-3) Neutrophils # (Auto) 1.6 x10^3uL (1.8-7.7) L Lymphocytes # (Auto) 1.2 x10^3/uL (1.0-4.8) Monocytes # (Auto) 0.2 x10^3/uL (0.0-1.1) Eosinophils # (Auto) 0.1 x10^3/uL (0.0-0.7) Basophils # (Auto) 0.0 x10^3/uL (0.0-0.2) Sodium Level 140 mmol/L (136-145) Potassium Level 3.9 mmol/L (3.5-5.1) Chloride Level 105 mmol/L (98-107) Carbon Dioxide Level 28 mmol/L (21-32) Anion Gap 7 (6-14) Blood Urea Nitrogen 16 mg/dL (7-20) Creatinine 1.1 mg/dL (0.6-1.0) H Estimated GFR (Cockcroft-Gault) 64.4 BUN/Creatinine Ratio 15 (6-20) Glucose Level 94 mg/dL (70-99) Calcium Level 9.2 mg/dL (8.5-10.1) Magnesium Level 2.1 mg/dL (1.8-2.4) Total Bilirubin 0.5 mg/dL (0.2-1.0) Aspartate Amino Transferase (AST) 18 U/L (15-37) Alanine Aminotransferase (ALT) 17 U/L (14-59) Alkaline Phosphatase 47 U/L (46-116) Creatine Kinase 266 U/L (26-192) H Creatine Kinase MB (Mass) 1.8 ng/mL (0.0-3.6) Creatine Kinase MB Relative Index 0.7 % (0-4) Troponin I Quantitative < 0.017 ng/mL (0.000-0.055) SA-Cpw-Q-Type Natriuretic Peptide 488 pg/mL (0-124) H Total Protein 7.6 g/dL (6.4-8.2) Albumin 4.3 g/dL (3.4-5.0) Albumin/Globulin Ratio 1.3 (1.0-1.7) Lipase 127 U/L (73-393) Laboratory Tests 04/02/18 16:11 Laboratory Tests 04/02/18 16:11 EKG EKG [Normal sinus rhythm at a rate of 60 beats for minute, normal axis, normal intervals, nonspecific ST/T changes, inferiorly/laterally. EKG is unchanged compared to patient's prior EKG from 04/2017.] Radiology/Procedures Radiology/Procedures [PROCEDURE: PORTABLE CHEST 1V EXAM: Chest, single view. HISTORY: Chest pain. COMPARISON: 05/04/2017. FINDINGS: A frontal view of the chest is obtained. There is no infiltrate, pleural effusion or pneumothorax. The heart is upper normal in size. There is evidence of prior CABG. IMPRESSION: No acute pulmonary finding. ] PROCEDURE: ABDOMEN LTD EXAM: Abdomen sonogram. HISTORY: Pain. TECHNIQUE: Sonographic imaging of the abdomen was performed. COMPARISON: None. FINDINGS: The liver is normal in size. The hepatic parenchyma is slightly echogenic relative to the kidney, not clearly within limits to suggest hepatic steatosis. No focal hepatic lesion is seen. The gallbladder is unremarkable. The common bile duct is normal in caliber. The right kidney is normal in size. There is no hydronephrosis. The pancreas is unremarkable. The inferior vena cava is patent. The aorta is normal in caliber. IMPRESSION: No acute abdominal finding. Course & Med Decision Making Course & Med Decision Making Pertinent Labs and Imaging studies reviewed. (See chart for details) [5:15 PM: The patient's condition remains a stable at this time. She states she did have a stress test by her home health speech therapist a few months ago and was normal. I had an extensive discussion with the patient about the limitations of ER cardiac evaluation in definitively ruling out acute coronary syndrome. We discussed limitation of the ER evaluation and a singe ED troponin in r/o AMI, and the risks involved in missed diagnosis of acute coronary syndrome including or permanent debility. I recommended overnight observation for further formal cardiac evaluation to rule out acute coronary syndrome. After expressing understanding of the limitations of ER cardiac evaluation, as well as the risks of missed diagnosis, the patient declined further cardiac evaluation at this time. The patient was mentally competent, and given opportunity to ask questions about the diagnosis and recommended plan of care. I stressed the importance of outpatient follow-up, and returning to the emergency department for new or worsening symptoms, or if the patient is agreeable to undergo further cardiac evaluation. ] Dragon Disclaimer Dragon Disclaimer This electronic medical record was generated, in whole or in part, using a voice recognition dictation system. Departure Departure Impression: Primary Impression: Chest pain Disposition: HOME, SELF-CARE Condition: STABLE Referrals: BRISEYDA PAREKH MD (PCP) Patient Instructions: Chest Pain (Nonspecific) ANA BRASHER MD Apr 02, 2018 16:05
[2018-04-02] MEDS: ASPIRIN CHEWABLE 81 MG TABLET. PO ONE (16:06)
[2018-04-02 16:20] LABS: BASO % 1 % (0-3); EOS # 0.1 x10^3/uL (0.0-0.7); EOS % 2 % (0-3); HEMATOCRIT 39.7 % (36.0-47.0); HEMOGLOBIN 13.3 g/dL (12.0-15.5); LYMPH # 1.2 x10^3/uL (1.0-4.8); LYMPH % 38 % (24-48); MEAN CORPUSCULAR HEMOGLOBIN 30 pg (25-35); MEAN CORPUSCULAR HGB CONC 33 g/dL (31-37); MEAN CORPUSCULAR VOLUME 91 fL (79-100); MONO # 0.2 x10^3/uL (0.0-1.1); MONO % 6 % (0-9); NEUT # 1.6 x10^3uL (1.8-7.7); NEUT % 54 % (31-73); PLATELET COUNT 184 x10^3/uL (140-400); RED BLOOD COUNT 4.38 x10^6/uL (3.50-5.40); RED CELL DISTRIBUTION WIDTH 13.2 % (11.5-14.5); WHITE BLOOD COUNT 3.1 x10^3/uL (4.0-11.0)
--- NOTE | 2018-04-02 16:21 | RAD ---
EXAM: Chest, single view. HISTORY: Chest pain. COMPARISON: 05/04/2017. FINDINGS: A frontal view of the chest is obtained. There is no infiltrate, pleural effusion or pneumothorax. The heart is upper normal in size. There is evidence of prior CABG. IMPRESSION: No acute pulmonary finding. Electronically signed by: Mahogany Maradiaga MD (04/02/2018 4:18 PM) [place] [id number]
[2018-04-02 16:38] LABS: CALCIUM 9.2 mg/dL (8.5-10.1); CREATININE 1.1 mg/dL (0.6-1.0); GFR 64.4; POTASSIUM 3.9 mmol/L (3.5-5.1)
[2018-04-02 16:43] LABS: BACTERIA,URINE FEW /HPF (0-FEW); RBC,URINE OCC /HPF (0-2); SQUAMOUS EPITHELIAL CELL,UR MOD /LPF
[2018-04-02 16:43] LABS: ALBUMIN 4.3 g/dL (3.4-5.0); ALBUMIN/GLOBULIN RATIO 1.3 (1.0-1.7); MAGNESIUM 2.1 mg/dL (1.8-2.4); TOTAL BILIRUBIN 0.5 mg/dL (0.2-1.0); TOTAL PROTEIN 7.6 g/dL (6.4-8.2)
[2018-04-02 16:44] LABS: HYALINE CASTS, URINE FEW /HPF
--- NOTE | 2018-04-02 16:44 | RAD ---
EXAM: Abdomen sonogram. HISTORY: Pain. TECHNIQUE: Sonographic imaging of the abdomen was performed. COMPARISON: None. FINDINGS: The liver is normal in size. The hepatic parenchyma is slightly echogenic relative to the kidney, not clearly within limits to suggest hepatic steatosis. No focal hepatic lesion is seen. The gallbladder is unremarkable. The common bile duct is normal in caliber. The right kidney is normal in size. There is no hydronephrosis. The pancreas is unremarkable. The inferior vena cava is patent. The aorta is normal in caliber. IMPRESSION: No acute abdominal finding. Electronically signed by: Mahogany Maradiaga MD (04/02/2018 4:41 PM) [id number]
[2018-04-02 17:03] VITALS: BP 173/99
== END 2018-04-02 17:45 | disposition home or self-care (01) ==
LOC: ER 15:12
DX: R07.89 Other chest pain (principal); R11.10 Vomiting, unspecified; E78.00 Pure hypercholesterolemia, unspecified; I10 Essential (primary) hypertension; J44.9 Chronic obstructive pulmonary disease, unspecified; I25.10 Atherosclerotic heart disease of native coronary artery without angina pectoris; I25.2 Old myocardial infarction; Z95.5 Presence of coronary angioplasty implant and graft; Z87.891 Personal history of nicotine dependence; Z88.5 Allergy status to narcotic agent
CPT/HCPCS: 36415; 71045; 76705; 80053; 81001; 81025; 82553; 83690; 83735; 83880; 84484; 85025; 93005; 99285-25

== ENCOUNTER 2018-08-10 18:08 | Emergency (ER) | payer MEDICARE ==
[~2018-08-10] VITALS: Ht 170.2 cm; Wt 63.5 kg
[2018-08-10 18:08] VITALS: BP 170/101
[~2018-08-10 18:08] MED LIST changes: -AMLO5TAB2 PO; +AMLO5TAB7 PO
[2018-08-10] MEDS ORDERED: CYCLOBENZAPRINE 10 MG TABLET. PO ONE (18:45)
[2018-08-10] MEDS ORDERED: predniSONE 20 MG TABLET PO ONE (18:45)
[2018-08-10] MEDS ORDERED: oxyCODONE/APAP 5/325 1 TAB TABLET PO ONE (18:45)
[2018-08-10] MEDS ORDERED: METH4TAB2 PO (18:54)
[2018-08-10] MEDS ORDERED: OXYC1TAB7 PO (18:54)
[2018-08-10] MEDS ORDERED: CYCL10TA2 PO (18:54)
--- NOTE | 2018-08-10 18:54 | PHYS DOC ---
Past Medical History Past Medical History: CAD, COPD, High Cholesterol, Hypertension, [place] Additional Past Medical Histor: Depression, anxiety Past Surgical History: Coronary Bypass Surgery, Tubal ligation Alcohol Use: Occasionally Drug Use: Marijuana Adult General Chief Complaint Chief Complaint: BACK PAIN OR INJURY HPI HPI Patient is a 48 year old female with history of CAD, multiple heart attacks, hypertension, high cholesterol, COPD, who presents today complaining of 10 out of 10 exacerbation of chronic low back pain. Patient describes the pain as stabbing. No non injury. Denies the pain radiating to bilateral lower extremities. Denies any loss of bowel bladder function. Denies any numbness or tenderness bilateral lower extremities. She states she used to follow-up with a pain clinic for injections to her back but has not needed them for a while unfortunately her pain has returned recently. Denies any fever nausea, vomiting. Denies any urinary symptoms. Review of Systems Review of Systems Constitutional: Denies fever or chills [] : Denies dysuria or hematuria [] Musculoskeletal: Reports exacerbation of chronic low back pain Integument: Denies rash or skin lesions [] Neurologic: Denies headache, focal weakness or sensory changes [] All other systems were reviewed and found to be within normal limits, except as documented in this note. Current Medications Current Medications Current Medications Medications (Trade) Dose Ordered Sig/Margaret Start Time Stop Time Status Last Admin Dose Admin Cyclobenzaprine HCl (Flexeril) 10 mg 1X ONCE 08/10/18 18:45 08/10/18 18:46 DC 08/10/18 18:37 10 MG Oxycodone/ Acetaminophen (Percocet 5/325) 2 tab 1X ONCE 08/10/18 18:45 08/10/18 18:46 DC 08/10/18 18:38 2 TAB Prednisone (Prednisone) 60 mg 1X ONCE 08/10/18 18:45 08/10/18 18:46 DC 08/10/18 18:38 60 MG Allergies Allergies Allergies Coded Allergies Type Severity Reaction Last Updated Verified naproxen Allergy Intermediate 05/04/17 Yes Physical Exam Physical Exam Constitutional: Well developed, well nourished, no acute distress, non-toxic appearance. [] Abdomen: Bowel sounds normal, soft, no tenderness, no masses, no pulsatile masses. [] Skin: Warm, dry, no erythema, no rash. [] Back: Diffuse paraspinal muscle tenderness to bilateral lumbar spine, no midline lumbar spine tenderness, no CVA tenderness. [] Extremities: No tenderness, no cyanosis, no clubbing, ROM intact, no edema. [] Neurologic: Alert and oriented X 3, normal motor function, normal sensory function, no focal deficits noted. [] Psychologic: Affect normal, judgement normal, mood normal. [] Current Patient Data Vital Signs Vital Signs Date Time Temp Pulse Resp B/P (MAP) Pulse Ox O2 Delivery O2 Flow Rate FiO2 08/10/18 18:38 16 100 Room Air EKG EKG [] Radiology/Procedures Radiology/Procedures [] Course & Med Decision Making Course & Med Decision Making Pertinent Labs and Imaging studies reviewed. (See chart for details) This is a 48-year-old. Patient presented to the ED today with bilateral low back pain chronic in nature, worse in the last couple days. No known injury, no cauda equina syndrome symptoms. Patient was provided pain clinic doctor for follow-up as an outpatient. Her Ktracs is clean. Unable to take NSAIDs due to CAD. Patient was discharged with Lidoderm patches, Medrol Dosepak and 10 tablets of oxycodone. Provided pain clinic doctor for follow-up as an outpatient. Dragon Disclaimer Dragon Disclaimer This electronic medical record was generated, in whole or in part, using a voice recognition dictation system. Departure Departure Impression: Primary Impression: Chronic low back pain Disposition: 01 HOME, SELF-CARE Condition: STABLE Referrals: BRISEYDA PAREKH MD (PCP) Follow-up in 1-2 weeks Patient Instructions: Back Pain, Adult, [id number] Additional Instructions: You were evaluated in the emergency room for chronic low back pain. Contact the provided pain clinic doctor and follow-up. Use the provided medicines as ordered. Scripts Cyclobenzaprine Hcl (CYCLOBENZAPRINE HCL) 10 Mg Tablet 1 TAB PO TID, #30 TAB Prov: MUTUNGA,DARIEN FINANCIAL SERVICES REPRESENTATIVE 08/10/18 Methylprednisolone (MEDROL) 4 Mg Tab.ds.pk 1 PKG PO UD, #1 PKG Prov: MUTUNGA,DARIEN [employer]AN[employer] SERVICES REPRESENTATIVE 08/10/18 Oxycodone Hcl/Acetaminophen (OXYCODONE-ACETAMINOPHEN 5-325) 1 Each Tablet 1 EACH PO PRN Q6HRS PRN for PAIN, #10 TAB 0 Refills Prov: MUTUNGA,DARIEN [employer]ANCIAL SERVICES REPRESENTATIVE 1/4/19 Problem Qualifiers Primary Impression: Chronic low back pain Back pain laterality: bilateral Sciatica presence: without sciatica Qualified Codes: M54.5 - Low back pain; G89.29 - Other chronic pain DARIEN RUSS APRN Aug 10, 2018 18:54
== END 2018-08-10 19:15 | disposition home or self-care (01) ==
LOC: ER 18:08
DX: G89.29 Other chronic pain (principal); M54.5 Low back pain; M79.604 Pain in right leg; M79.605 Pain in left leg; E78.00 Pure hypercholesterolemia, unspecified; I10 Essential (primary) hypertension; J44.9 Chronic obstructive pulmonary disease, unspecified; I25.2 Old myocardial infarction; I25.10 Atherosclerotic heart disease of native coronary artery without angina pectoris; Z95.5 Presence of coronary angioplasty implant and graft; Z98.51 Tubal ligation status; Z88.5 Allergy status to narcotic agent
CPT/HCPCS: 99284; J7512

== ENCOUNTER 2018-09-26 16:16 | Emergency (ER) | payer MEDICARE ==
[~2018-09-26] VITALS: Ht 170.2 cm; Wt 62.1 kg
[~2018-09-26 16:16] MED LIST changes: +AMLO5TAB10 PO; -AMLO5TAB7 PO; +CYCL10TA2 PO; +METH4TAB2 PO; +OXYC1TAB7 PO
[2018-09-26] MEDS ORDERED: oxyCODONE/APAP 5/325 1 TAB TABLET PO ONE (17:30)
[2018-09-26] MEDS ORDERED: tiZANidine 4 MG TABLET. PO ONE (17:30)
[2018-09-26 17:54] LABS: BASO % 1 % (0-3); EOS # 0.1 x10^3/uL (0.0-0.7); EOS % 2 % (0-3); HEMATOCRIT 38.9 % (36.0-47.0); HEMOGLOBIN 12.8 g/dL (12.0-15.5); LYMPH # 1.2 x10^3/uL (1.0-4.8); LYMPH % 32 % (24-48); MEAN CORPUSCULAR HEMOGLOBIN 30 pg (25-35); MEAN CORPUSCULAR HGB CONC 33 g/dL (31-37); MEAN CORPUSCULAR VOLUME 92 fL (79-100); MONO # 0.3 x10^3/uL (0.0-1.1); MONO % 9 % (0-9); NEUT # 2.3 x10^3uL (1.8-7.7); NEUT % 57 % (31-73); PLATELET COUNT 219 x10^3/uL (140-400); RED BLOOD COUNT 4.21 x10^6/uL (3.50-5.40); RED CELL DISTRIBUTION WIDTH 13.3 % (11.5-14.5); WHITE BLOOD COUNT 3.9 x10^3/uL (4.0-11.0)
--- NOTE | 2018-09-26 18:02 | PHYS DOC ---
Past Medical History Past Medical History: COPD, Depression, High Cholesterol, Hypertension Additional Past Medical Histor: CHRONIC LOWER BACK PAIN Past Surgical History: Coronary Bypass Surgery Alcohol Use: None Drug Use: None Adult General Chief Complaint Chief Complaint: COUGH HPI HPI Patient is a 48 year old female who presents with cough for the last 3 days with right-sided chest pain. Patient states she is coughing up green yellow mucus. Patient states she blows her nose she is also blowing out green yellow mucus. Patient also complains of chronic low back pain that she has been seen by her doctor and treated for for over a year. Patient states that the Percocet aren't helping, states that hydrocodone's don't help, states tramadol does not help states Medrol Dosepak one month ago did not help. Patient states that she was suppose to be going to physical therapy but she can't afford it so she is not going. Patient is asking for me to give her something stronger for pain. Review of Systems Review of Systems Constitutional: Denies fever or chills [] Eyes: Denies change in visual acuity, redness, or eye pain [] HENT: nasal congestion. Denies sore throat [] Respiratory: cough or shortness of breath [] Cardiovascular: Right sided chest and rib pain GI: Denies abdominal pain, nausea, vomiting, bloody stools or diarrhea [] : Denies dysuria or hematuria [] Musculoskeletal: Chronic low back pain or joint pain [] Integument: Denies rash or skin lesions [] Neurologic: Denies headache, focal weakness or sensory changes [] All other systems were reviewed and found to be within normal limits, except as documented in this note. Current Medications Current Medications Current Medications Medications (Trade) Dose Ordered Sig/Margaret Start Time Stop Time Status Last Admin Dose Admin Oxycodone/ Acetaminophen (Percocet 5/325) 1 tab 1X ONCE 09/26/18 17:30 09/26/18 17:35 DC 09/26/18 17:50 1 TAB Tizanidine HCl (Zanaflex) 4 mg 1X ONCE 09/26/18 17:30 09/26/18 17:35 DC 09/26/18 17:50 4 MG Allergies Allergies Allergies Coded Allergies Type Severity Reaction Last Updated Verified naproxen Allergy Intermediate 05/04/17 Yes Physical Exam Physical Exam Constitutional: Well developed, well nourished, no acute distress, non-toxic appearance. [] HENT: Normocephalic, atraumatic, bilateral external ears normal, oropharynx moist, no oral exudates, nose normal. [] Eyes: PERRLA, EOMI, conjunctiva normal, no discharge. [] Neck: Normal range of motion, no tenderness, supple, no stridor. [] Cardiovascular:Heart rate regular rhythm, no murmur [] Lungs & Thorax: Bilateral breath sounds clear to auscultation [] Abdomen: Bowel sounds normal, soft, no tenderness, no masses, no pulsatile masses. [] Skin: Warm, dry, no erythema, no rash. [] Back: No tenderness, no CVA tenderness. [] Extremities: No tenderness, no cyanosis, no clubbing, ROM intact, no edema. [] Neurologic: Alert and oriented X 3, normal motor function, normal sensory function, no focal deficits noted. [] Psychologic: Affect normal, judgement normal, mood normal. [] Normal Physical Examination Current Patient Data Vital Signs Vital Signs Date Time Temp Pulse Resp B/P (MAP) Pulse Ox O2 Delivery O2 Flow Rate FiO2 09/26/18 17:50 18 98 Room Air 09/26/18 17:06 98.5 68 164/92 (116) 98.5 Lab Values Laboratory Tests Test 09/26/18 17:45 09/26/18 18:10 09/26/18 18:20 09/26/18 18:26 White Blood Count 3.9 x10^3/uL (4.0-11.0) L Red Blood Count 4.21 x10^6/uL (3.50-5.40) Hemoglobin 12.8 g/dL (12.0-15.5) Hematocrit 38.9 % (36.0-47.0) Mean Corpuscular Volume 92 fL (79-100) Mean Corpuscular Hemoglobin 30 pg (25-35) Mean Corpuscular Hemoglobin Concent 33 g/dL (31-37) Red Cell Distribution Width 13.3 % (11.5-14.5) Platelet Count 219 x10^3/uL (140-400) Neutrophils (%) (Auto) 57 % (31-73) Lymphocytes (%) (Auto) 32 % (24-48) Monocytes (%) (Auto) 9 % (0-9) Eosinophils (%) (Auto) 2 % (0-3) Basophils (%) (Auto) 1 % (0-3) Neutrophils # (Auto) 2.3 x10^3uL (1.8-7.7) Lymphocytes # (Auto) 1.2 x10^3/uL (1.0-4.8) Monocytes # (Auto) 0.3 x10^3/uL (0.0-1.1) Eosinophils # (Auto) 0.1 x10^3/uL (0.0-0.7) Basophils # (Auto) 0.0 x10^3/uL (0.0-0.2) Sodium Level 140 mmol/L (136-145) Potassium Level 4.1 mmol/L (3.5-5.1) Chloride Level 104 mmol/L (98-107) Carbon Dioxide Level 28 mmol/L (21-32) Anion Gap 8 (6-14) Blood Urea Nitrogen 15 mg/dL (7-20) Creatinine 1.1 mg/dL (0.6-1.0) H Estimated GFR (Cockcroft-Gault) 64.1 Glucose Level 98 mg/dL (70-99) Calcium Level 8.9 mg/dL (8.5-10.1) Troponin I Quantitative < 0.017 ng/mL (0.000-0.055) Influenza Type A Antigen Negative (NEGATIVE) Influenza Type B Antigen Negative (NEGATIVE) Urine Collection Type Unknown Urine Color Yellow Urine Clarity Clear Urine pH 5.5 Urine Specific [place] 1.025 Urine Protein Negative mg/dL (NEG-TRACE) Urine Glucose (UA) Negative mg/dL (NEG) Urine Ketones (Stick) Negative mg/dL (NEG) Urine Blood Negative (NEG) Urine Nitrite Negative (NEG) Urine Bilirubin Negative (NEG) Urine Urobilinogen Dipstick 1.0 mg/dL (0.2 mg/dL) Urine Leukocyte Esterase Negative (NEG) Urine RBC 0 /HPF (0-2) Urine WBC 0 /HPF (0-4) Urine Squamous Epithelial Cells Occ /LPF Urine Bacteria 0 /HPF (0-FEW) Urine Hyaline Casts Occasional /HPF Urine Mucus Mod /LPF Urine Opiates Screen Neg (NEG) Urine Methadone Screen Neg (NEG) Urine Barbiturates Neg (NEG) Urine Phencyclidine Screen Neg (NEG) Urine Amphetamine/Methamphetamine Neg (NEG) Urine Benzodiazepines Screen Neg (NEG) Urine Cocaine Screen Neg (NEG) Urine Cannabinoids Screen Pos (NEG) Urine Ethyl Alcohol Neg (NEG) POC Urine HCG, Qualitative Hcg negative (Negative) Laboratory Tests 09/26/18 17:45 Laboratory Tests 09/26/18 17:45 EKG EKG Sinus rhythm and no STEMI Interpretation Time: 1717 and no STEMI Radiology/Procedures Radiology/Procedures Chest Xray Course & Med Decision Making Course & Med Decision Making Patient is a 48 year old female who presents with cough for the last 3 days with right-sided chest pain. Patient states she is coughing up green yellow mucus. Patient states she blows her nose she is also blowing out green yellow mucus. Patient also complains of chronic low back pain that she has been seen by her doctor and treated for for over a year. Patient states that the Percocet aren't helping, states that hydrocodone's don't help, states tramadol does not help states Medrol Dosepak one month ago did not help. Patient states that she was suppose to be going to physical therapy but she can't afford it so she is not going. Patient is asking for me to give her something stronger for pain. I told patient that I will give her Percocet and a muscle relaxer. I told patient that she needs to go to physical therapy to follow-up with her primary care for her chronic low back pain. Lungs are clear to auscultation all lobes. She states she is short of air she does have COPD. She is given a DuoNeb and prednisone in the ED. Patient states she's not been taking anything for her symptoms. Patient does have a history of open-heart surgery with a bypass. Her EKG shows sinus rhythm and no STEMI. Vital signs are within normal limits. Patient's rating her pain a 9 out of 10. She is alert and oriented. Mucous membranes are moist. Skin is pink warm and dry. Patient is ambulatory with a steady gait. No extremity swelling. PERRLA. She is afebrile, 100% on room air, 72 heart rate. Abdomen is soft and nontender. Patient complains of right-sided rib pain and chest pain especially with coughing and movement. Patient states she is afraid that she's has pneumonia and that's why she is here today. Speaks in full clear sentences. No respiratory distress. Patient denies nausea, vomiting, diarrhea, fever, body aches, dizziness, visual changes, syncope, ear pain, throat pain. Blood work unremarkable. Chest x-ray shows no acute findings and was read by Dr. Navarrete. She will be sent home with a respiratory infection. Patient's vital signs remain stable and her status remained stable. Patient needs to follow-up with her primary care concerning her chronic pain and she can also take the Percocet that she has for her rib pain from coughing. Dragon Disclaimer Dragon Disclaimer This electronic medical record was generated, in whole or in part, using a voice recognition dictation system. Departure Departure Impression: Primary Impression: Respiratory infection Disposition: HOME, SELF-CARE Condition: STABLE Referrals: BRISEYDA PAREKH MD (PCP) Patient Instructions: Chronic Obstructive Pulmonary Disease Exacerbation, Upper Respiratory Infection, Adult Additional Instructions: Follow-up primary care soon as possible. Take medications as prescribed. Take the Percocet you have to help with your rib pain and right-sided chest pain due to her cough. Scripts Benzonatate (TESSALON PERLE) 100 Mg Capsule 1 CAP PO TID, #30 CAP Prov: CULLEN HAYNES APRN 09/26/18 Albuterol Sulfate (PROAIR HFA INHALER) 8.5 Gm Hfa.aer.ad 1 PUFF INH PRN Q6HRS PRN for SHORTNESS OF BREATH, #1 INHALER 0 Refills Prov: CULLEN HAYNES APRN 09/26/18 Azithromycin (AZITHROMYCIN TABLET) 250 Mg Tablet 1 PKG PO UD, #6 TAB Prov: CULLEN HAYNES APRN 09/26/18 Methylprednisolone (MEDROL) 4 Mg Tab.ds.pk 1 PKG PO UD, #1 PKG Prov: CULLEN HAYNES APRN 09/26/18 CULLEN HAYNES APRN Sep 26, 2018 18:02
[2018-09-26 18:04] LABS: CALCIUM 8.9 mg/dL (8.5-10.1); CREATININE 1.1 mg/dL (0.6-1.0); GFR 64.1; POTASSIUM 4.1 mmol/L (3.5-5.1)
[2018-09-26 18:31] LABS: INFLUENZA A PATIENT NEGATIVE (NEGATIVE); INFLUENZA B PATIENT NEGATIVE (NEGATIVE)
[2018-09-26 18:35] LABS: BILIRUBIN,URINE NEGATIVE (NEG); CLARITY,URINE CLEAR; COLOR,URINE YELLOW; NITRITE,URINE NEGATIVE (NEG); PH,URINE 5.5; PROTEIN,URINE NEGATIVE (NEG-TRACE)
[2018-09-26 18:40] LABS: BACTERIA,URINE 0 /HPF (0-FEW); RBC,URINE 0 /HPF (0-2); SQUAMOUS EPITHELIAL CELL,UR OCC /LPF; WBC,URINE 0 /HPF (0-4)
[2018-09-26 18:41] LABS: BARBITURATES NEG (NEG); BENZODIAZEPINES NEG (NEG); CANNABINOIDS POS (NEG); COCAINE NEG (NEG); HYALINE CASTS, URINE OCCASIONAL /HPF; METHADONE NEG (NEG); OPIATES NEG (NEG); PHENCYCLIDINE NEG (NEG)
[2018-09-26 18:42] LABS: AMPHETAMINE/METHAMPHETAMINE NEG (NEG)
[2018-09-26 19:21] VITALS: BP 129/80
[2018-09-26] MEDS ORDERED: METH4TAB2 PO (19:27)
[2018-09-26] MEDS ORDERED: BENZ100C PO (19:27)
[2018-09-26] MEDS ORDERED: AZIT250T6 PO (19:27)
[2018-09-26] MEDS ORDERED: ALBU2.5V8 INH (19:27)
--- NOTE | 2018-09-26 19:48 | RAD ---
Chest radiograph 09/26/2018 5:51 PM INDICATION: Shortness of breath COMPARISON: April 02, 2018 TECHNIQUE: Frontal and lateral views of the chest are provided. FINDINGS: The cardiomediastinal silhouette is within normal limits. Median sternotomy changes are present. There are no pleural effusions. There is no pulmonary vascular congestion. There is no pneumothorax. The lungs are clear. No significant osseous abnormality is identified. IMPRESSION: No acute cardiopulmonary process. Electronically signed by: Sofya Bingham MD (09/26/2018 7:46 PM) [facility]
--- NOTE | 2018-09-27 06:16 | EKG ---
[facility] [address] [place] [address] Test Date: 2018-09-26 Test Time: 17:17:45 Pat Name: CHET WILCOX Department: Room: Gender: F Teaching Dietitian: : 1970 Requested By: CULLEN HAYNES Order Number: [id number] Reading MD: Measurements Intervals [place] Rate: 72 P: 61 MN: 166 QRS: 81 QRSD: 88 T: 70 QT: 404 QTc: 449 Interpretive Statements SINUS RHYTHM QRS(T) CONTOUR ABNORMALITY CONSIDER ANTEROSEPTAL MYOCARDIAL DAMAGE POSSIBLY ABNORMAL ECG RI6.01 Unconfirmed report No previous ECG available for comparison
--- NOTE | 2018-09-27 11:30 | EKG ---
[facility] [address] [place] [address] Test Date: 2018-09-26 Test Time: 19:17:13 Pat Name: CHET WILCOX Department: Room: Gender: F [place]: : 1970 Requested By: CULLEN HAYNES Order Number: [id number] Reading MD: Measurements Intervals [place] Rate: 73 P: 103 [place]: 152 QRS: 28 QRSD: 84 T: 44 QT: 398 QTc: 442 Interpretive Statements SINUS RHYTHM ATRIAL PREMATURE COMPLEX(ES) NO SPECIFIC ECG ABNORMALITIES RI6.01 Unconfirmed report No previous ECG available for comparison
== END 2018-09-26 19:42 | disposition home or self-care (01) ==
LOC: ER 16:16
DX: J98.8 Other specified respiratory disorders (principal); R07.89 Other chest pain; G89.29 Other chronic pain; M54.5 Low back pain; E78.00 Pure hypercholesterolemia, unspecified; J44.9 Chronic obstructive pulmonary disease, unspecified; I10 Essential (primary) hypertension; Z95.1 Presence of aortocoronary bypass graft; Z88.5 Allergy status to narcotic agent
CPT/HCPCS: 36415; 71046; 80048; 80307; 81001; 81025; 84484; 85025; 87804; 93005; 99284-25

== ENCOUNTER → 2018-10-04 | Outpatient (CLI) | payer MEDICARE ==
[2018-09-26 19:21] VITALS: BP 129/80
[~2018-10-04] MED LIST changes: +ALBU2.5V8 INH; +AZIT250T6 PO; +BENZ100C PO
--- NOTE | 2018-10-04 10:05 | KCIC ---
MRI Lumbar Spine without contrast History: Low back pain, bilateral lower extremity radiculopathy Technique: Multiplanar, multi sequential noncontrast MR imaging was performed of the lumbar spine. Comparison: None Findings: Lumbar vertebral body stature and AP alignment are maintained. There is moderate degenerative disc disease at L4-5. There is posterior annular tear L4-5. There is L4-5 endplate edema anteriorly, no fluid in the intervertebral disc space. Conus terminates at L1-L2. L3-L4: There is mild buckling of the ligamentum flavum. Neural foramina and spinal canal are adequate. L4-L5: There is disc osteophyte complex, superimposed bulge/broad protrusion more eccentric to the left lateral recess. There is mild buckling of the ligamentum flavum. There is mild narrowing of the far left lateral recess. Neural foramina are adequate. L5-S1: Neural foramina and spinal canal are adequate. There is mild facet degenerative change greater on the left. Impression: 1. There is disc osteophyte complex with superimposed bulge/broad protrusion more eccentric to the left lateral recess at L4-5, mild narrowing of the far left lateral recess. There is no significant lumbar neural foramina compromise. There is moderate degenerative disc disease at L4-5, minimal anterior endplate edema likely reactive/degenerative in etiology. Electronically signed by: Sherif Stokes MD (10/04/2018 10:02 AM) [id number]
== END | disposition home or self-care (01) ==
LOC: KCIC MRI 08:13
PROVIDERS: ATTEND Family Medicine
DX: M48.061 Spinal stenosis, lumbar region without neurogenic claudication (principal); M51.36 Other intervertebral disc degeneration, lumbar region; R60.0 Localized edema
CPT/HCPCS: 72148

== ENCOUNTER 2020-07-19 13:17 | Emergency (ER) | payer MEDICARE ==
[~2020-07-19] VITALS: Ht 170.2 cm; Wt 74.0 kg
[~2020-07-19 13:17] MED LIST changes: +AMLO-186 PO; -AMLO5TAB10 PO
[2020-07-19 13:20] VITALS: BP 156/112
[2020-07-19] MEDS ORDERED: AMOX875T PO (13:39)
[2020-07-19] MEDS ORDERED: HYDR-2761 PO (13:39)
--- NOTE | 2020-07-19 13:39 | PHYS DOC ---
Past Medical History Past Medical History: CAD, COPD, Depression, High Cholesterol, Hypertension, [place] Additional Past Medical Histor: CHRONIC LOWER BACK PAIN Past Surgical History: Coronary Bypass Surgery Smoking Status: Former Smoker Alcohol Use: None Drug Use: None General Adult EDM: Chief Complaint: DENTAL PROBLEM HPI: HPI: Patient is a 50 year old female with history of quadruple bypass, depression, hypertension, high cholesterol, who presents today complaining of moderate pain to the right lower gum that began yesterday. Patient states she has tried [id number] Orajel with no relief. Denies any fever. Denies any trismus. She states she does not have a dentist but has medical insurance and did not know if her insurance will cover dental work. Patient denies anything specifica lly elevating or relieving her pain. Review of Systems: Review of Systems: Constitutional: Denies fever or chills. [] HENT: Reports right lower gum dental pain. Denies nasal congestion or sore throat. [] Musculoskeletal: Denies back pain or joint pain. [] Integument: Denies rash. [] Neurologic: Denies headache, focal weakness or sensory changes. [] ] Psychiatric: Denies depression or anxiety. [] Heart Score: Risk Factors: Risk Factors: DM, Current or recent (<one month) smoker, HTN, HLP, family history of CAD, obesity. Risk Scores: Score 0 - 3: 2.5% MACE over next 6 weeks - Discharge Home Score 4 - 6: 20.3% MACE over next 6 weeks - Admit for Clinical Observation Score 7 - 10: 72.7% MACE over next 6 weeks - Early Invasive Strategies Allergies: Allergies: Allergies Coded Allergies Type Severity Reaction Last Updated Verified naproxen Allergy Intermediate 05/04/17 Yes Physical Exam: PE: Constitutional: Well developed, well nourished, no acute distress, non-toxic appearance. [] HENT: Normocephalic, atraumatic, bilateral external ears normal, oropharynx moist, no oral exudates, nose normal. [] Tooth #28 and 29 covered with Orajel. No gum erythema noted. No abscess. Skin: Warm, dry, no erythema, no rash. [] Back: No tenderness, no CVA tenderness. [] Extremities: No tenderness, no cyanosis, no clubbing, ROM intact, no edema. [] Neurologic: Alert and oriented X 3, normal motor function, normal sensory function, no focal deficits noted. [] Psychologic: Affect normal, judgement normal, mood normal. [] EKG: EKG: [] Radiology/Procedures: Radiology/Procedures: [] Course & Med Decision Making: Course & Med Decision Making Pertinent Labs and Imaging studies reviewed. (See chart for details) This is a 50-year-old female patient with history of quadruple bypass among other illnesses presenting with dental pain. Appears to have some cavities. Will discharge patient on antibiotics. We did give a prescription for hydrocodone. Provided the dental list as well. Dragon Disclaimer: Dragon Disclaimer: This electronic medical record was generated, in whole or in part, using a voice recognition dictation system. Departure Departure Impression: Primary Impression: Dentalgia Additional Impression: Dental caries Disposition: 01 DC HOME SELF CARE/HOMELESS Condition: STABLE Referrals: BRISEYDA PAREKH MD (PCP) Follow-up with your dentist as soon as possible or a dentist from the list provided Patient Instructions: Dental Caries Additional Instructions: You were seen for dental pain. Follow-up with a dentist as soon as possible. Take the prescribed antibiotics until completed. Scripts Amoxicillin (AMOXICILLIN) 875 Mg Tablet 1 TAB PO BID, #20 TAB Prov: DARIEN RUSS APRN 07/19/20 Hydrocodone Bit/Acetaminophen (HYDROCODONE-APAP 5-325 ) 1 Tab Tablet 1 TAB PO PRN Q6HRS PRN for PAIN, #14 TAB 0 Refills Prov: DARIEN RUSS APRN 07/19/20 DARIEN RUSS APRN Jul 19, 2020 13:39
== END 2020-07-19 13:50 | disposition home or self-care (01) ==
LOC: ER 13:17
DX: K02.9 Dental caries, unspecified (principal); K08.89 Other specified disorders of teeth and supporting structures; J44.9 Chronic obstructive pulmonary disease, unspecified; F32.9 Major depressive disorder, single episode, unspecified; I11.9 Hypertensive heart disease without heart failure; E78.00 Pure hypercholesterolemia, unspecified; I25.2 Old myocardial infarction; G89.29 Other chronic pain; Z98.890 Other specified postprocedural states; Z87.891 Personal history of nicotine dependence; Z88.8 Allergy status to other drugs, medicaments and biological substances
CPT/HCPCS: 99283

== ENCOUNTER → 2021-11-19 | Outpatient (CLI) | payer MEDICARE ==
[~2021-11-19] MED LIST changes: +AMOX875T PO; +CYCL10TA19 PO; -CYCL10TA2 PO; +HYDR-2761 PO; -LISI-334 PO; +LISI20TA18 PO
--- NOTE | 2021-11-19 14:58 | RAD ---
INDICATION: Reason: / Spl. Instructions: / History: Postmenopausal bleeding COMPARISON: None. TECHNIQUE: Grayscale and color ultrasound images uterus and adnexa. Transabdominal and transvaginal images obtained. Transvaginal images were needed to better visualize structures that were limited on transabdominal imaging. FINDINGS: Uterus: 92 x 48 x 42 mm. 6 mm endometrial stripe Right Ovary: 23 x 13 x 13 mm. Left Ovary: 24 x 19 x 15 mm. Vascular flow identified to bilateral ovaries. Multiple masses are identified within the uterus and extending into the adnexal region. For example 1 6 x 11 mm within the uterus, 51 x 45 mm extending in the left adnexal region and 32 x 33 mm extending in the right adnexal region. Complex cystic lesion of the left adnexa 21 x 18 mm. IMPRESSION: * Within the bilateral adnexal region there are heterogenous masslike structure seen. Is difficult to tell if this is uterine in origin from causes such as exophytic fibroid or if this is secondary to an adnexal mass/neoplasm. It may be helpful to obtain a follow-up pelvic MRI to further assess and e nsure that there is not an adnexal mass since neoplasm is not excluded on this exam. * Additional mass within the myometrium most commonly from fibroid. * Complex cystic lesion of the left ovary which could be from causes such as hemorrhagic cyst with o ther higher grade cystic masses also within the differential. This could also be evaluated on MRI Electronically signed by: Kevin Avery MD (11/19/2021 2:56 PM) [id number]
== END ==
LOC: US 10:53
PROVIDERS: ATTEND Obstetrics & Gynecology
DX: N95.0 Postmenopausal bleeding (principal); N83.202 Unspecified ovarian cyst, left side
CPT/HCPCS: 76856

== ENCOUNTER → 2021-11-29 | Outpatient (CLI) | payer MEDICARE ==
[~2021-11-29] MED LIST changes: +CONTRAST GIVEN. MC PRN; +IOHEXOL 300 MG/ML 100ML VIAL. IV ONE
--- NOTE | 2021-11-29 10:28 | RAD ---
CT pelvis with contrast PQRS statement: CT scans at this facility use dose reduction including either automated exposure cont rol, iterative reconstructions, and /or weight based radiation dosing via mA and kV modification when appropriate to reduce radiation dose to as low as reasonably achievable. HISTORY: Adnexal mass. Contrast: 75 mL Omnipaque 300 intravenous contrast. COMPARISON: Pelvic ultrasound November 19, 2021 FINDINGS: Due to the possibility of intrapelvic fat as well as numerous pelvic bowel loops surroundin g the uterus and adnexa there is limited visualization of the ovary. Along the right upper posterior surface of the uterine fundus there is a ill-defined 2.5 cm mass with numerous calcifications is unce rtain if this is exophytic from the uterus or if this arises within the right adnexa, no normal right ovary can be visualized. Separately along the left lateral wall of the lower uterine segment and ext ending superiorly at left adnexa is a 3.0 soft tissue mass above this there is a oval 2 cm markedly h yperdense cyst or enhancing mass with an internal density 185 units, no normal left ovary can be visu alized. Endometrial thickness approximately 1.5 cm hyperdensity or enhancement. Bladder and rectum un remarkable. There is mild low-density fluid in the cul-de-sac. No adenopathy. Lower lumbar disc disea se. IMPRESSION: 1. 2 pelvic soft tissue masses located at the regions of the adnexa, with no normal ovaries identifie d. These could be exophytic uterine leiomyomas versus ovarian solid neoplastic masses. 2. 2 cm markedly hyperdense or hypervascular enhancing lesion along the upper surface of the left adn exal mass lesion is indeterminate this could be a hemorrhagic cyst versus a hypervascular enhancing s olid mass lesion. 3. Given the limited assessment of these lesions on recent pelvic sonography, more definitive assessm ent with MR imaging could be considered to determine the exact uterine versus ovarian origin of these masses as well as the benign versus aggressive characteristics of these masses. Electronically signed by: Isauro Barr MD (11/29/2021 10:25 AM) [facility]
== END ==
LOC: CT 08:42
PROVIDERS: ATTEND Obstetrics & Gynecology
DX: N94.9 Unspecified condition associated with female genital organs and menstrual cycle (principal); M51.36 Other intervertebral disc degeneration, lumbar region
CPT/HCPCS: 72193; Q9967